=== PATIENT | female | born 1960 | race Caucasian/White ===

== ENCOUNTER 2016-07-31 22:52 | Observation (INO) | payer OTHER ==
[~2016-07-31] VITALS: Ht 172.7 cm; Wt 70.5 kg
[~2016-07-31 22:52] MED LIST: ALLEGRA ALLERG180 MG PO; MOTRIN800 MG PO; PERCOCET 5/31 TABLET PO; TIROSINT50 MCG PO; VICODIN 5-3001 EACH PO; ZOFRAN ODT4 MG PO
[2016-07-31 23:19] LABS: HEMATOCRIT 40.2 % (36.0-46.0); MCH 30.4 PG (29.0-34.0); MCHC 33.8 G/DL (30.0-36.0); MCV 89.7 FL (83-99); MEAN PLAT.VOLUME 10.1 uM^3 (9.5-12.4); PLATELET COUNT 209 K/uL (156-360); RBC DIS.WIDTH-CV 12.4 % (11.8-14.6); RED BLOOD COUNT 4.48 M/uL (3.80-5.20); WHITE BLOOD COUNT 4.3 K/uL (4.1-10.2)
[2016-07-31 23:31] LABS: CHLORIDE 110 mEq/L (99-109); POTASSIUM 3.8 mEq/L (3.7-5.4); SODIUM 144 mEq/L (136-147)
[2016-07-31 23:33] LABS: GLUCOSE 117 mg/dL (70-99)
[2016-07-31 23:35] LABS: ANION GAP 11 MEQ/L (2-14)
[2016-07-31 23:37] LABS: GFR ESTIMATE (CALCULATED) 54 mL/min/
[2016-07-31 23:38] LABS: UREA NITROGEN (BUN) 16 mg/dL (9-23)
[2016-07-31 23:44] LABS: TROP-I INTERPRETATION NEGATIVE; TROPONIN-I < 0.01 ng/mL (0.0-0.30)
[2016-08-01 06:55] LABS: D-DIMER ELISA 0.75 mg/L FEU (< 0.57)
[2016-08-01 07:18] VITALS: BP 133/69
[2016-08-01] MEDS ORDERED: ADVIL,NUPRIN,M200 MG PO (10:49)
[2016-08-01 11:21] VITALS: BP 117/60
[2016-08-01 12:40] LABS: TROP-I INTERPRETATION NEGATIVE; TROPONIN-I < 0.01 ng/mL (0.0-0.30)
[2016-08-01 15:19] VITALS: BP 126/81
[2016-08-01 17:11] LABS: TROP-I INTERPRETATION NEGATIVE; TROPONIN-I < 0.01 ng/mL (0.0-0.30)
== END 2016-08-01 17:20 | disposition home or self-care (01) ==
LOC: EME 22:52 → EDOF 08-01 06:03 → 5WEST 08-01 07:09
PROVIDERS: Hospitalist
DX: I48.0 Paroxysmal atrial fibrillation (principal); R00.2 Palpitations; R07.89 Other chest pain; R06.02 Shortness of breath; E03.9 Hypothyroidism, unspecified; R51 Headache; R42 Dizziness and giddiness
CPT/HCPCS: 71020; 71275; 80048; 84443; 84484; 85027; 85379; 93005; 93306; 99281; 99285; G0378; J7030

== ENCOUNTER 2016-10-28 03:13 | Inpatient (IN) | payer OTHER ==
[~2016-10-28] VITALS: Ht 172.7 cm; Wt 69.2 kg
[~2016-10-28 03:13] MED LIST changes: +ADVIL,NUPRIN,M200 MG PO
[2016-10-28 03:32] LABS: HEMATOCRIT 41.9 % (36.0-46.0); MCH 29.6 PG (29.0-34.0); MCHC 33.7 G/DL (30.0-36.0); MEAN PLAT.VOLUME 10.1 uM^3 (9.5-12.4); PLATELET COUNT 223 K/uL (156-360); RBC DIS.WIDTH-CV 12.1 % (11.8-14.6); RBC DIS.WIDTH-SD 39.2 % (39-53); RED BLOOD COUNT 4.76 M/uL (3.80-5.20); WHITE BLOOD COUNT 4.3 K/uL (4.1-10.2)
[2016-10-28 03:38] LABS: PROTHROMBIN TIME 10.5 SEC (10.2-12.9)
[2016-10-28 03:40] LABS: PTT 30.1 SEC (25-37)
[2016-10-28 03:47] LABS: CHLORIDE 107 mEq/L (99-109); POTASSIUM 3.7 mEq/L (3.7-5.4); SODIUM 144 mEq/L (136-147)
[2016-10-28 03:48] LABS: GLUCOSE 104 mg/dL (70-99)
[2016-10-28 03:50] LABS: ANION GAP 11 MEQ/L (2-14)
[2016-10-28 03:52] LABS: GFR ESTIMATE (CALCULATED) > 59 mL/min/
[2016-10-28 03:53] LABS: UREA NITROGEN (BUN) 15 mg/dL (9-23)
[2016-10-28 03:57] LABS: TROP-I INTERPRETATION NEGATIVE; TROPONIN-I < 0.01 ng/mL (0.0-0.30)
[2016-10-28 06:15] VITALS: BP 126/75
[2016-10-28 08:44] VITALS: BP 117/74
[2016-10-28 10:51] LABS: TROP-I INTERPRETATION POSITIVE
[2016-10-28 11:50] LABS: HDL CHOLESTEROL 68 MG/DL (Desirable>=50); LDL CHOLESTEROL 123 mg/dL (Desirable<100); NON-HDL CHOLESTEROL 136 mg/dL (Desirable<160); TOTAL CHOLESTEROL 204 mg/dL (Desirable<200); TRIGLYCERIDES 64 MG/DL (Normal: <150)
[2016-10-28 11:54] VITALS: BP 106/66
[2016-10-28 14:46] VITALS: BP 115/68
[2016-10-28 17:20] LABS: TROP-I INTERPRETATION POSITIVE; TROPONIN-I 2.14 ng/mL (0.0-0.30)
[2016-10-28 20:30] VITALS: BP 100/56
[2016-10-28 23:00] VITALS: BP 102/65
[2016-10-29] VITALS (12 sets, daily range): BP systolic 88–124; BP diastolic 54–82
[2016-10-29 00:45] LABS: PROTHROMBIN TIME 11.5 SEC (10.2-12.9)
[2016-10-29 00:48] LABS: PTT 63.5 SEC (25-37)
[2016-10-29 08:02] LABS: HEMATOCRIT 43.6 % (36.0-46.0); MCH 30.7 PG (29.0-34.0); MCHC 34.2 G/DL (30.0-36.0); MCV 89.9 FL (83-99); MEAN PLAT.VOLUME 10.8 uM^3 (9.5-12.4); PLATELET COUNT 192 K/uL (156-360); RBC DIS.WIDTH-CV 12.5 % (11.8-14.6); RBC DIS.WIDTH-SD 41.1 % (39-53); RED BLOOD COUNT 4.85 M/uL (3.80-5.20); WHITE BLOOD COUNT 3.3 K/uL (4.1-10.2)
[2016-10-29 08:08] LABS: ANION GAP 10 MEQ/L (2-14); CHLORIDE 107 MEQ/L (99-109); SAMPLE HEMOLYSIS CHECK 0; SAMPLE ICTERIC CHECK 0; SAMPLE LIPEMIA CHECK 0; SODIUM 139 MEQ/L (136-147)
[2016-10-29 08:13] LABS: GFR ESTIMATE (CALCULATED) > 59 mL/min/; GLUCOSE 81 mg/dL (70-99); UREA NITROGEN (BUN) 15 mg/dL (9-23)
[2016-10-29 08:14] LABS: POTASSIUM 4.5 MEQ/L (3.7-5.4)
[2016-10-29 14:21] LABS: METH RESISTANT S AUREUS PCR NEGATIVE (NEGATIVE)
[2016-10-29 14:22] LABS: PROBE CHECK PASS; SPECIMEN PROCESSING CONTROL PASS
[2016-10-30] VITALS: BP 90/52
[2016-10-30 05:00] VITALS: BP 102/60
[2016-10-30 06:04] LABS: EOSINOPHIL (%) 2.1 % (0-5); EOSINOPHIL COUNT 0.1 K/uL (0-0.3); HEMATOCRIT 42.9 % (36.0-46.0); IMMATURE GRANULOCYTE (%) 0.3 % (0.0-0.7); INSTRUMENT ABS NEUTROPHIL CT 2.2 K/uL; LYMPHOCYTE COUNT 1.1 K/uL (1.0-2.8); MCH 29.1 PG (29.0-34.0); MCHC 33.1 G/DL (30.0-36.0); MCV 87.9 FL (83-99); MEAN PLAT.VOLUME 10.6 uM^3 (9.5-12.4); MONOCYTE (%) 9.1 % (3-12); MONOCYTE COUNT 0.4 K/uL (0-0.8); NEUTROPHIL (%) 58.5 % (45-76); NEUTROPHIL COUNT 2.2 K/uL (1.8-6.4); PLATELET COUNT 213 K/uL (156-360); RBC DIS.WIDTH-CV 12.2 % (11.8-14.6); RBC DIS.WIDTH-SD 39.6 % (39-53); RED BLOOD COUNT 4.88 M/uL (3.80-5.20); WHITE BLOOD COUNT 3.8 K/uL (4.1-10.2)
[2016-10-30 07:03] LABS: ANION GAP 10 MEQ/L (2-14); CHLORIDE 105 MEQ/L (99-109); GFR ESTIMATE (CALCULATED) 54 mL/min/; GLUCOSE 70 mg/dL (70-99); POTASSIUM 4.6 MEQ/L (3.7-5.4); SAMPLE HEMOLYSIS CHECK 0; SAMPLE ICTERIC CHECK 0; SAMPLE LIPEMIA CHECK 0; SODIUM 139 MEQ/L (136-147); UREA NITROGEN (BUN) 15 mg/dL (9-23)
[2016-10-30 08:00] VITALS: BP 96/66
[2016-10-30] MEDS ORDERED: CARVEDILOL3.125 MG PO (09:04)
[2016-10-30] MEDS ORDERED: DURLAZA162.5 MG PO (09:34)
== END 2016-10-30 09:45 | disposition home or self-care (01) | DRG 287 ==
LOC: EME 03:13 → EDOF 04:15 → ENRESERV 04:18 → 5WEST 05:58 → 4WEST 12:36 → 5WEST 12:36 → ENRESERV 12:39 → 4EAST 22:51 → ENRESERV 10-29 11:17 → 4EAST 10-29 12:21 → 4WEST 10-29 12:23 → ENRESERV 10-30 03:22 → CANRESERV 10-30 03:22 → 4WEST 10-30 09:45
PROVIDERS: Emergency Medicine; Hospitalist; Physician Assistant Medical
DX: I51.81 Takotsubo syndrome (principal); Z77.22 Contact with and (suspected) exposure to environmental tobacco smoke (acute) (chronic); F41.9 Anxiety disorder, unspecified; E03.9 Hypothyroidism, unspecified; R94.31 Abnormal electrocardiogram [ECG] [EKG]; I48.0 Paroxysmal atrial fibrillation; Q24.5 Malformation of coronary vessels; Z79.82 Long term (current) use of aspirin
CPT/HCPCS: 71010; 80048; 80061; 83880; 84484; 85025; 85027; 85347; 85610; 85730; 87641; 93005; 93306; 99281; 99285; C1769; C1887; J1644; J2060; J2250; J2405; J3010